=== PATIENT | male | born 1985 | race Caucasian/White ===

== ENCOUNTER 2020-05-20 18:54 | Emergency (ER) | payer OTHER ==
[2020-05-20 18:58] VITALS: BP 142/69
[2020-05-20] MEDS ORDERED: MULTIVITAMIN1 SGL PO (19:00)
== END 2020-05-20 21:27 | disposition home or self-care (01) ==
LOC: ED 18:54
DX: S46.912A Strain of unspecified muscle, fascia and tendon at shoulder and upper arm level, left arm, initial encounter (principal); S13.4XXA Sprain of ligaments of cervical spine, initial encounter; V49.40XA Driver injured in collision with unspecified motor vehicles in traffic accident, initial encounter